=== PATIENT | female | born 1995 ===

== ENCOUNTER 2020-10-03 11:12 | Emergency (ER) | payer OTHER ==
[~2020-10-03] VITALS: Ht 162.6 cm; Wt 61.2 kg
== END 2020-10-03 16:26 | disposition home or self-care (01) ==
LOC: ER 11:12
DX: H92.01 Otalgia, right ear (principal); H61.21 Impacted cerumen, right ear

== ENCOUNTER 2020-10-05 09:46 | Outpatient (CLI) | payer OTHER | END 2020-10-05 10:31 | disposition home or self-care (01) | LOC: OFIC 805 09:46 | PROVIDERS: ATTEND Otolaryngology Otology & Neurotology | DX: H93.8X1 Other specified disorders of right ear (principal); H92.01 Otalgia, right ear; H61.23 Impacted cerumen, bilateral ==